=== PATIENT | male | born 1950 ===

== ENCOUNTER 2021-10-31 09:57 | Emergency (ER) | payer MEDICARE ==
[2021-10-31] MEDS ORDERED: ASPIRIN 325 MG TAB PO ONE (10:13)
--- NOTE | 2021-10-31 10:49 | XRay Report ---
CHEST 2 VIEWS INDICATION / CLINICAL INFORMATION: hypertension. COMPARISON: None available. FINDINGS: SUPPORT DEVICES: None. HEART / MEDIASTINUM: No significant abnormality. LUNGS / PLEURA: No significant pulmonary or pleural abnormality. No pneumothorax. ADDITIONAL FINDINGS: No significant additional findings. IMPRESSION: 1. No acute findings. Signer Name: Matthew Alba DO Signed: 10/31/2021 10:44 AM Workstation Name: [id number]
[2021-10-31 11:02] LABS: Basophils % (Auto) 0.6 % (0.0-1.8); Eosinophils # (Auto) 0.1 K/mm3 (0.0-0.4); Eosinophils % (Auto) 1.6 % (0.0-4.3); Hematocrit 47.5 % (35.5-45.6); Hemoglobin 16.5 gm/dl (11.8-15.2); Lymphocytes # (Auto) 1.7 K/mm3 (1.2-5.4); Lymphocytes % (Auto) 22.2 % (13.4-35.0); Mean Corpuscular HGB Conc 35 % (32-34); Mean Corpuscular Volume 84 fl (84-94); Monocytes # (Auto) 0.9 K/mm3 (0.0-0.8); Monocytes % (Auto) 11.5 % (0.0-7.3); Platelet Count 224 K/mm3 (140-440); Red Blood Count 5.64 M/mm3 (3.65-5.03); Red Cell Distribution Width 15.2 % (13.2-15.2)
[2021-10-31 11:42] LABS: Alanine Aminotransferase 33 units/L (7-56); Albumin 4.3 g/dL (3.9-5); Blood Urea Nitrogen 6 mg/dL (9-20); Calcium 9.6 mg/dL (8.4-10.2); Hemolysis Index 10
[2021-10-31 11:45] LABS: BUN/Creatinine Ratio 9
[2021-10-31] MEDS ORDERED: ACETAMINOPHEN 325 MG TAB ONE (15:33)
--- NOTE | 2021-10-31 15:53 | Emergency Department Report ---
ED General Adult HPI - General Chief complaint: High BP Stated complaint: BOTH FEET ARE SWOLLEN/PURPLE PUI?: No Time Seen by Provider: 10/31/21 15:40 Source: patient, family Mode of arrival: Ambulatory Limitations: No Limitations - History of Present Illness Initial comments: THIS IS A PLEASANT 71 YEAR OLD MALE WITH KNOWN MEDICAL HISTORY OF ONLY HYPERTENSION WHO IS NOT MEDICALLY COMPLIANT AND HAS NOT TAKEN BLOOD PRESSURE MEDICATION FOR THE PAST 2 MONTHS; PATIENT STATES HE IS NOT SURE WHICH MEDICATION HE WAS ON. PATIENT CAME IN TODAY WITH CONCERN OF LEFT ANKLE PAIN FOR 3 WEEK WHICH PATIENT FELL THAT TIME AND DIDN'T GET IT CHECKED. STATES HE NOTICED HE HAS BILATERAL LOWER ANKLE SWELLING FOR ABOUT 3 MONTHS AND 15 DAYS NOW; PATIENT DENIES PROLONG TRAVELING OR LOWER EXTREMITY INJURY. PATIENT ALSO DENIES SHORTNESS OF BREATH OR ORTHOPNEA. PATIENT STATES HE DRINKS ALCOHOL ON A DAILY BASIS AND THE LAST TIME HE HAD ALCOHOL INTAKE WAS 3 DAYS AGO. PATIENT DENIES ANY OTHER DISCOMFORT. - Related Data Allergies Allergy/AdvReac Type Severity Reaction Status Date / Time No Known Allergies Allergy Verified 10/31/21 10:13 ED Review of Systems ROS: Stated complaint: BOTH FEET ARE SWOLLEN/PURPLE Other details as noted in HPI Comment: All other systems reviewed and negative Constitutional: no symptoms reported, see HPI Eyes: as per HPI ENT: as per HPI Respiratory: no symptoms reported Cardiovascular: as per HPI Endocrine: no symptoms reported Gastrointestinal: as per HPI Musculoskeletal: other (BILATEARL ANKLE SWELLING; LEFT ANKLE PAIN) Skin: as per HPI Neurological: as per HPI Psychiatric: as per HPI Hematological/Lymphatic: as per HPI ED Past Medical Hx - Past Medical History Previous Medical History?: Yes Hx Hypertension: Yes (noncompliant) - Surgical History Additional Surgical History: sx on finger - Social History Smoking Status: Never Smoker ED Physical Exam - General Limitations: No Limitations General appearance: alert, in no apparent distress - Head Head exam: Present: atraumatic, normocephalic, normal inspection - Eye Eye exam: Present: normal appearance, PERRL, EOMI Pupils: Present: normal accommodation - ENT ENT exam: Present: normal exam, mucous membranes moist - Neck Neck exam: Present: normal inspection, full ROM - Respiratory Respiratory exam: Present: normal lung sounds bilaterally. Absent: respiratory distress, wheezes, rales, rhonchi, stridor - Cardiovascular Cardiovascular Exam: Present: regular rate, normal rhythm, normal heart sounds - GI/Abdominal GI/Abdominal exam: Present: soft - Extremities Exam Extremities exam: Present: normal inspection, full ROM, tenderness (LEFT ANKLE DISCOMFORT), normal capillary refill, pedal edema. Absent: joint swelling, calf tenderness - Back Exam Back exam: Present: normal inspection, full ROM - Neurological Exam Neurological exam: Present: alert, oriented X3, CN II-XII intact, normal gait - Psychiatric Psychiatric exam: Present: normal affect, normal mood - Skin Skin exam: Present: normal color ED Course Vital Signs 10/31/21 10:09 Temperature 98.9 F Pulse Rate 76 Respiratory 14 Rate Blood Pressure 206/113 O2 Sat by Pulse 100 Oximetry - Reevaluation(s) Reevaluation #1: Labs with no endorgan damage; patient have asymptomatic hypertensive urgency. Patient will discontinue his blood pressure medication and make a follow-up appoint with his primary care provider to be seen within 3 days for further outpatient evaluation and blood pressure management. Patient is also was unremarkable for deep venous thrombosis. ED Medical Decision Making - Lab Data Result diagrams: 10/31/21 10:33 10/31/21 10:33 Critical care attestation.: If time is entered above; I have spent that time in minutes in the direct care of this critically ill patient, excluding procedure time. ED Disposition Clinical Impression: Asymptomatic hypertensive urgency, Bilateral swelling of feet and ankles, Ankle pain, left Disposition: HOME / SELF CARE / HOMELESS Is pt being admited?: No Does the pt Need Aspirin: No Condition: Stable Instructions: Hypertension, Adult Referrals: PRIMARY CARE, [Primary Care Provider] - 3-5 Days Time of Disposition: 23:18
--- NOTE | 2021-10-31 16:16 | XRay Report ---
LEFT ANKLE, 2 VIEWS INDICATION / CLINICAL INFORMATION: LEFT ANKLE INJURY. COMPARISON: None available. FINDINGS: There is diffuse and prominent soft tissue swelling throughout the ankle without focality. I do not s ee any significant osseous abnormality, however. No fracture or malalignment is noted. Incidental finding of small plantar calcaneal spur. IMPRESSION: Diffuse soft tissue swelling, nonspecific. No acute osseous abnormality noted. Signer Name: Loreto Gauthier MD Signed: 10/31/2021 4:11 PM Workstation Name: [id number]
--- NOTE | 2021-10-31 23:20 | Vascular Lab Report ---
DUPLEX DOPPLER LOWER EXTREMITY VEINS, BILATERAL INDICATION / CLINICAL INFORMATION: LEG SWELLING ; DDIMER HIGH. TECHNIQUE: Duplex doppler imaging was performed through the veins of both lower extremities using lion ous compression and other maneuvers. COMPARISON: None available. FINDINGS: RIGHT COMMON FEMORAL VEIN: Negative. RIGHT FEMORAL VEIN: Negative. RIGHT POPLITEAL VEIN: Negative. RIGHT CALF VEINS: Negative. LEFT COMMON FEMORAL VEIN: Negative. LEFT FEMORAL VEIN: Negative. LEFT POPLITEAL VEIN: Negative. LEFT CALF VEINS: Negative. ADDITIONAL FINDINGS: None. IMPRESSION: 1. No sonographic evidence for DVT in either lower extremity. Signer Name: Alexey Ordonez II, MD Signed: 10/31/2021 11:15 PM Workstation Name: [id number]
[2021-10-31] MEDS ORDERED: cloNIDine 0.1 MG TAB PO ONE (23:33)
[2021-10-31 23:39] VITALS: BP 210/101
--- NOTE | 2021-11-01 18:51 | Electrocardiograph Report ---
[facility] Test Date: 2021-10-31 Test Time: 10:18:37 Pat Name: ALEJANDRA ELLER Department: Room: Gender: M Vp Medical: NURSE : 1950 Requested By: LORRAINE JAIME Order Number: [id number] Reading MD: Alaina Nowak Measurements Intervals Harris Rate: 71 P: 52 NC: 159 QRS: 66 QRSD: 96 T: 60 QT: 380 QTc: 413 Interpretive Statements Sinus rhythm No previous ECG available for comparison Electronically Signed On 11-01-2021 18:51:26 EDT by Alaina Nowak
== END 2021-10-31 23:50 | disposition home or self-care (01) ==
LOC: ED 09:57
DX: M25.473 Effusion, unspecified ankle (principal); M25.572 Pain in left ankle and joints of left foot; I16.0 Hypertensive urgency
CPT/HCPCS: 36415; 71046; 80053; 83880; 84484; 85025; 85379; 93005; 93970; 99284